=== PATIENT | male | born 1980 | race Caucasian/White ===

== ENCOUNTER → 2016-09-11 | Day surgery (SDC) | payer BC ==
[~2016-09-11] MED LIST: INVOKANA100 MG PO; METFORMIN HCL500 M1 PO; OXYCODONE HCL15 MG PO; OXYCONTIN30 MG PO
--- NOTE | ~2016-09-11 | OR ---
Unit #: [id number] #: [id number] Patient: TATIANNA COSTA [id number] [address] [place], [place] [address] [id number] O MR#: [id number] NAME: TATIANNA COSTA ROOM: Date of Procedure: 09/11/2016 Admission Date: 09/11/2016 Surgeon: Chidi Duckworth M.D. : 1980 Attending Physician: Chidi Duckworth M.D. OPERATIVE REPORT PREOPERATIVE DIAGNOSES Thoracic disk herniation, thoracic back pain, thoracic radiculopathy. POSTOPERATIVE DIAGNOSES Thoracic disk herniation, thoracic back pain, thoracic radiculopathy. PROCEDURE PERFORMED Thoracic epidural steroid injection with intravenous sedation and fluoroscopic guidance for needle localization. INDICATIONS FOR PROCEDURE This is a 36-year-old male with previously mentioned diagnosis. Disk herniation caused marked neuroforaminal stenosis at the T10-11 level. He was treated 6 weeks ago with a single epidural steroid injection and a very good response that lasted almost 3 weeks and he gradually returned with the symptoms. He is back to his baseline now and likely with that response, he would have done better with a small series of injections and repeat injection now and again in 3 weeks was seem to good reasonable. The patient will follow up back with his spine surgeon. DESCRIPTION OF PROCEDURE The patient was placed in a seated position. Standard monitors were applied. 2 mg of Versed were given for sedation and anxiolysis, which were adequate. Vital signs remained stable. Sterile prep and drape then of the thoracic area was performed. The skin then to the right of midline at the T11 level was localized with 1% lidocaine. An 18-gauge Pro[employer]ox Technologiestead needle was then advanced via right paramedian approach with loss of resistance technique in toward the epidural space. The patient did not complain of any pain or paresthesia during needle advancement. After confirming proper positioning with fluoroscopy and radiographic contrast, 80 mg of Depo-Medrol and 4 mL of 0.125% bupivacaine were deposited. The patient tolerated the procedure otherwise well and was discharged to the recovery room in stable condition. Dictated by... Chidi Duckworth M.D. LHP/modl TD: 09/12/2016 03:34 Unit #: [id number] #: [id number] Patient: TATIANNA COSTA JOB #: [id number] CC: Mansoor Pierson M.D. OPERATIVE REPORT Page 1 of 1 X Chidi Duckworth MD X PROCEDURE OPERATIVE NOTE
== END | disposition home or self-care (01) ==
LOC: CCSC 11:05
DX: M51.14 Intervertebral disc disorders with radiculopathy, thoracic region (principal)
CPT/HCPCS: 82947; J1040; J2250

== ENCOUNTER → 2016-09-30 | Day surgery (SDC) | payer BC ==
--- NOTE | ~2016-09-30 | OR ---
Unit #: [id number] #: [id number] Patient: TATIANNA COSTA [id number] [address] [place], [place] [address] [id number] O MR#: [id number] NAME: TATIANNA COSTA ROOM: Date of Procedure: 09/30/2016 Admission Date: 09/30/2016 Surgeon: Chidi Duckworth M.D. : 1980 Attending Physician: Chidi Duckworth M.D. Referring Physician: Chidi Duckworth M.D. Primary Care Physician: Generic Doctor Not In System OPERATIVE REPORT JOB NOTE: CC: [facility]. PREOPERATIVE DIAGNOSES Thoracic herniated nucleus pulposus, back pain, thoracic radiculopathy. POSTOPERATIVE DIAGNOSES Thoracic herniated nucleus pulposus, back pain, thoracic radiculopathy. PROCEDURE PERFORMED Thoracic epidural steroid injection with intravenous sedation and fluoroscopic guidance for needle localization. INDICATIONS FOR PROCEDURE The patient is a 36-year-old male, who presented with mid and low back pain due to known right-sided T10-T11 disk herniation. This causing marked neural foraminal stenosis. The patient failed to settle with conservative treatment. Decision was made to give the patient a trial of epidural steroids. Two were done over the last month and a half or so. They have given the patient 40% to 50% overall additive improvement to injections. We are going to proceed with a final injection today based on his good partial response. DESCRIPTION OF PROCEDURE The patient was placed in the seated position. Standard monitors were applied. 2 mg of Versed were given for sedation and anxiolysis, which were adequate. Vital signs remained stable. Sterile prep and drape then of the thoracic area was performed. The skin then to the right of midline at the T11 level was localized with 1% lidocaine. An 18-gauge Hustead needle was then advanced via right paramedian approach and loss of resistance technique in toward the epidural space. The patient did not complain of any pain or paresthesia during needle advancement. After confirming proper positioning with fluoroscopy and radiographic contrast, 80 mg of Depo-Medrol and 4 mL of 0.125% bupivacaine were deposited. The patient tolerated the procedure otherwise well and was discharged to recovery room in stable condition. Dictated by... Chidi Duckworth M.D. LHP/modl Unit #: [id number] #: [id number] Patient: TATIANNA COSTA TD: 09/30/2016 23:44 JOB #: [id number] OPERATIVE REPORT Page 1 of 1 X Chidi Duckworth MD X PROCEDURE OPERATIVE NOTE
== END | disposition home or self-care (01) ==
LOC: CCSC 10:57
DX: M51.14 Intervertebral disc disorders with radiculopathy, thoracic region (principal)
CPT/HCPCS: 82947; J1040; J2250